=== PATIENT | female | born 1975 | race Caucasian/White ===

== ENCOUNTER 2020-04-16 18:53 | Emergency (ER) | payer BC ==
--- NOTE | 2020-04-16 19:20 | ED Physician Documentation ---
PD HPI ABD PAIN - Stated complaint Stated Complaint: ABD PX - Chief complaint Chief Complaint: Abd Pain - History obtained from History obtained from: Patient - History of Present Illness Timing - onset: How many weeks ago (1) Timing - duration: Weeks (1) Timing - details: Abrupt onset Pain level max: 10 Pain level now: 10 Quality: Aching, Pain Location: RUQ Radiation: Right flank Improved by: Other (nothing) Worsened by: Other (nothing) Associated symptoms: Nausea. No: Fever, Hematemesis, Diarrhea, Constipation, Melena, Hematochezia, Dysuria, Hematuria Similar symptoms before: Has not had sx before Recently seen: Clinic (sent from walk in clinic for possible appendicitis.) Review of Systems Ten Systems: 10 systems reviewed and negative Constitutional: denies: Fever, Chills GI: denies: Nausea, Vomiting : denies: Dysuria Skin: denies: Rash PD PAST MEDICAL HISTORY - Past Medical History Past Medical History: No - Past Surgical History Past Surgical History: No - Present Medications Home Medications: Ambulatory Orders Medication Instructions Recorded Confirmed Propranolol [Inderal] 0 mg DAILY 04/16/20 04/16/20 Sertraline [Zoloft] 0 mg DAILY 04/16/20 04/16/20 - Allergies Allergies/Adverse Reactions: Allergies Allergy/AdvReac Type Severity Reaction Status Date / Time Sulfa (Sulfonamide Allergy Unknown Verified 04/16/20 19:05 Antibiotics) - Living Situation Living Situation: reports: With family Living Arrangement: reports: At home - Social History Does the pt smoke?: No Does the pt drink ETOH?: No Does the pt have substance abuse?: No PD ED PE NORMAL - Vitals Vital signs reviewed: Yes - General General: Alert and oriented X 3, No acute distress, Other (obese female) - HEENT HEENT: Moist mucous membranes - Neck Neck: Supple, no meningeal sign - Cardiac Cardiac: RRR - Respiratory Respiratory: No respiratory distress, Clear bilaterally - Abdomen Abdomen: Soft, Non distended, Other (To palpation right upper quadrant. Positive Harvey sign) - Back Back: No CVA TTP - Derm Derm: Warm and dry - Extremities Extremities: No calf tenderness / cord - Neuro Neuro: Alert and oriented X 3 - Psych Psych: Normal mood Results - Vitals Vitals: Vital Signs - 24 hr 04/16/20 04/16/20 04/16/20 19:00 19:04 20:20 Temperature 36.6 C Heart Rate 69 72 65 Respiratory 16 16 16 Rate Blood Pressure 168/88 H 142/72 H 141/68 H O2 Saturation 98 99 100 04/16/20 04/16/20 21:45 22:33 Temperature Heart Rate 66 62 Respiratory 18 16 Rate Blood Pressure 138/68 H 139/66 H O2 Saturation 100 100 Oxygen O2 Source Room air - Labs Labs: Laboratory Tests 04/16/20 04/16/20 04/16/20 19:30 19:30 21:42 WBC 13.2 H RBC 3.98 L Hgb 11.3 L Hct 35.8 L MCV 89.9 MCH 28.4 MCHC 31.6 L RDW 15.0 Plt Count 298 MPV 9.4 Neut # (Auto) 10.9 H Lymph # (Auto) 1.2 L [place] # (Auto) 0.8 Eos # (Auto) 0.2 Baso # (Auto) 0.1 Absolute Nucleated RBC 0.00 Nucleated RBC % 0.0 Sodium 135 Potassium 3.9 Chloride 102 Carbon Dioxide 24 Anion Gap 9.0 BUN 8 Creatinine 0.9 Estimated GFR (MDRD) 67 L Glucose 108 H Calcium 9.0 Total Bilirubin 0.6 AST 20 ALT 22 Alkaline Phosphatase 65 Total Protein 7.1 Albumin 3.6 Globulin 3.5 Albumin/Globulin Ratio 1.0 Lipase 30 Urine Color YELLOW Urine Clarity CLEAR Urine pH 7.0 Ur Specific [place] 1.010 Urine Protein NEGATIVE Urine Glucose (UA) NEGATIVE Urine Ketones NEGATIVE Urine Occult Blood NEGATIVE Urine Nitrite NEGATIVE Urine Bilirubin NEGATIVE Urine Urobilinogen 0.2 (NORMAL) Ur Leukocyte Esterase NEGATIVE Ur Microscopic Review NOT INDICATED Urine Culture Comments NOT INDICATED - Rads (name of study) Right upper quadrant ultrasound Radiology: Prelim report reviewed, EMP read contemporaneously, See rad report (1. No evidence of cholelithiasis or cholecystitis. 2. Increased hepatic echogenicity compatible with steatosis. ) CT abd/pelvis Radiology: Prelim report reviewed, EMP read contemporaneously, See rad report PD MEDICAL DECISION MAKING - ED course Complexity details: reviewed results, re-evaluated patient, considered differential, d/w patient ED course: 45-year-old female with abdominal pain of unclear etiology. No acute findings on CT scan or ultrasound. There is mild asymmetric enlargement of the left ovary, therefore pelvic ultrasound was ordered. Does have a mild leukocytosis, but no fever. Denies any changes in sexual partners. No vaginal bleeding or discharge. Possible ruptured cyst? We will order a pelvic ultrasound and the patient will be signed out to Dr. Mari awaiting that result. Please see his note for final disposition. 1. Mild asymmetric enlargement of the left ovary with fat stranding and fluid in the left adnexa. The findings are nonspecific and the differential includes pelvic inflammatory disease, left ovarian torsion, or sequelae of a ruptured cyst. Recommend correlation clinically and further evaluation with a pelvic ultrasound if clinically indicated. 2. No abscess collections. 3. Colonic diverticulosis without acute diverticulitis. Departure - Departure Clinical Impression: Abdominal pain Qualifiers: Abdominal location: generalized Qualified Code(s): R10.84 - Generalized abdominal pain Condition: Stable
[2020-04-16 19:44] LABS: BASOPHILS # (AUTO) 0.1 10^3/uL (0.0-0.1); BASOPHILS % (AUTO) 0.4 %; EOSINOPHILS # (AUTO) 0.2 10^3/uL (0.0-0.7); EOSINOPHILS % (AUTO) 1.2 %; HGB - HEMOGLOBIN 11.3 g/dL (12.0-16.0); LYMPHOCYTES # (AUTO) 1.2 10^3/uL (1.5-3.5); LYMPHOCYTES % (AUTO) 8.9 %; MEAN CORPUSCULAR HEMOGLOBIN 28.4 pg (27.0-31.0); MEAN CORPUSCULAR HGB CONC 31.6 g/dL (32.0-36.0); MEAN CORPUSCULAR VOLUME 89.9 fL (81.0-99.0); MEAN PLATELET VOLUME 9.4 fL (7.9-10.8); MONOCYTES # (AUTO) 0.8 10^3/uL (0.0-1.0); MONOCYTES % (AUTO) 6.2 %; NEUTROPHILS # (AUTO) 10.9 10^3/uL (1.5-6.6); NEUTROPHILS % (AUTO) 82.7 %; PLT - PLATELET COUNT 298 10^3/uL (130-450); RED BLOOD COUNT 3.98 10^6/uL (4.20-5.40); WHITE BLOOD COUNT 13.2 x10^3/uL (4.8-10.8)
[2020-04-16 19:55] LABS: ALBUMIN 3.6 g/dL (3.2-5.5); BILIRUBIN,TOTAL 0.6 mg/dL (0.2-1.0); CREATININE 0.9 mg/dL (0.4-1.0); TOTAL PROTEIN 7.1 g/dL (6.7-8.2)
[2020-04-16] MEDS ORDERED: IOVERSOL 320 100 ML VIAL IVP ONE ×2 (20:53→21:41)
--- NOTE | 2020-04-16 20:56 | Ultrasound Report ---
PROCEDURE: Abdomen Limited INDICATIONS: RUQ abd pain TECHNIQUE: Real-time focused scanning was performed of the right upper quadrant, with image documentation. COMPARISON: None. FINDINGS: Evaluation limited by body habitus and bowel gas. The liver appears enlarged and demonstrates heterogeneously increased echogenicity compatible with fa tty infiltration. No gallstones, definite gallbladder wall thickening, or pericholecystic fluid. The gallbladder is inc ompletely distended slightly limiting evaluation. No definite intra or extra hepatic biliary ductal dilatation. The visualized common bile duct measure s up to 5 mm. The pancreas was not well visualized. Right kidney measures up to 11.1 cm. No hydronephrosis. IMPRESSION: 1. No evidence of cholelithiasis or cholecystitis. 2. Increased hepatic echogenicity compatible with steatosis. Reviewed by: Mike Page MD on 04/16/2020 8:55 PM PDT Approved by: Mike Page MD on 04/16/2020 8:55 PM PDT Station ID: [id number]
[2020-04-16] MEDS ORDERED: SODIUM CHLORIDE 0.9% 1,000 ML IV STA (21:19)
--- NOTE | 2020-04-16 21:45 | CT Report ---
PROCEDURE: Abdomen/Pelvis W INDICATIONS: R sided abd pain CONTRAST: IV CONTRAST: Optiray 320 ml: 100 PO CONTRAST: *NO PO CONTRAST TECHNIQUE: After the administration of intravenous contrast, 5 mm thick sections acquired from the diaphragms to the symphysis. 5 mm thick coronal and sagittal reformats were acquired. For radiation dose reducti on, the following was used: automated exposure control, adjustment of mA and/or kV according to jessy ent size. COMPARISON: Ultrasound abdomen 04/16/2020. FINDINGS: Image quality: There is beam hardening artifact slightly limiting evaluation. ABDOMEN: Lung bases: There is mild dependent atelectasis. Heart size is normal. Solid organs: Evaluation of the liver demonstrates no focal hepatic lesions. Gallbladder appears with in normal limits without calcified gallstones. Spleen is normal in size. Biliary system is non dilate d. Pancreas enhances normally. No adrenal nodules. Kidneys demonstrate normal size and enhancement , without hydronephrosis. Peritoneum and bowel: Bowel loops demonstrate normal wall thickness and caliber. The appendix is nor mal in appearance. There is colonic diverticulosis without acute diverticulitis. No free fluid or air . Nodes and vessels: No retroperitoneal or mesenteric adenopathy by size criteria. Aorta and inferior vena cava are normal in size. Miscellaneous: No ventral hernias. PELVIS: Genitourinary: Bladder wall thickness is normal. There is mild asymmetric enlargement of the left o vary measuring up to approximately 5.1 x 3.3 x 3.2 cm. There is associated mild fat stranding and min imal fluid in the left adnexa. No free fluid in the pelvic cul-de-sac. The uterus and endometrium are mildly prominent in size but within normal limits for a premenopausal female. Miscellaneous: No inguinal hernias or adenopathy. Bones: No suspicious bony lesions. No vertebral body compression fractures. IMPRESSION: 1. Mild asymmetric enlargement of the left ovary with fat stranding and fluid in the left adnexa. The findings are nonspecific and the differential includes pelvic inflammatory disease, left ovarian tor viviane, or sequelae of a ruptured cyst. Recommend correlation clinically and further evaluation with a pelvic ultrasound if clinically indicated. 2. No abscess collections. 3. Colonic diverticulosis without acute diverticulitis. Reviewed by: Mike Page MD on 04/16/2020 9:44 PM PDT Approved by: Mike Page MD on 04/16/2020 9:44 PM PDT Station ID: [id number]
[2020-04-16 21:53] LABS: BILIRUBIN,URINE NEGATIVE (NEGATIVE); GLUCOSE, URINE (UA) NEGATIVE (NEGATIVE); KETONES,URINE (UA) NEGATIVE (NEGATIVE); LEUKOCYTE ESTERASE, URINE NEGATIVE (NEGATIVE); NITRITE,URINE NEGATIVE (NEGATIVE); OCCULT BLOOD,URINE NEGATIVE (NEGATIVE); PROTEIN,URINE NEGATIVE (NEGATIVE); UROBILINOGEN,URINE 0.2 (NORMAL) E.U./dL (NORMAL)
[2020-04-16 21:54] LABS: CLARITY,URINE CLEAR (CLEAR)
[2020-04-16] MEDS ORDERED: KETOROLAC 30 MG/ML VIAL IVP STA (21:58)
[2020-04-16] MEDS ORDERED: LIDOCAINE VISCOUS 2% 15 ML UDC MM STA (23:14)
[2020-04-16] MEDS ORDERED: MAG HYDROX/AL HYDROX/SIMETH 30 ML UDC PO STA (23:15)
--- NOTE | 2020-04-16 23:17 | ED Physician Documentation ---
PD HPI ABD PAIN - Stated complaint Stated Complaint: ABD PX - Chief complaint Chief Complaint: Abd Pain - History obtained from History obtained from: Patient - History of Present Illness Timing - onset: How many weeks ago (1) Timing - duration: Weeks (1) Timing - details: Gradual onset, Still present Quality: Sharp, Pain Location: RUQ Radiation: Right flank Improved by: Laying still Worsened by: Moving, Breathing, Position, Palpation. No: Eating Associated symptoms: No: Nausea, Vomiting, Diarrhea, Constipation Similar symptoms before: Has not had sx before Recently seen: Clinic - Additional information Additional information: 45-year-old female describes developing abdominal pain in the right upper lisa drant 1 week ago she had persistence of this pain [place] She saw Dr. Chavez and he recommended she come to the hospital for CAT scan for concern about her appendix. The patient states that she has been able to eat throughout the past week she denies any nausea vomiting diarrhea constipation or difficulty with urination. She felt she might have a kidney infection and that was her concern. She states that she did have her menses and a lot of cramping associated with that and she took some ibuprofen. She states that it hurts to roll over in bed it hurts to stand up straight and it hurts to sit up in bed. Review of Systems Constitutional: reports: Fever (low grade (99)) Eyes: denies: Decreased vision Ears: denies: Ear pain Nose: denies: Congestion Throat: denies: Sore throat Cardiac: denies: Chest pain / pressure, Palpitations Respiratory: denies: Dyspnea, Cough GI: reports: Abdominal Pain. denies: Abdominal Swelling, Nausea, Vomiting, Constipation, Diarrhea : denies: Dysuria, Frequency Skin: denies: Rash Musculoskeletal: denies: Neck pain, Back pain Neurologic: denies: Generalized weakness, Focal weakness, Numbness PD PAST MEDICAL HISTORY - Past Medical History Past Medical History: No Cardiovascular: Hypertension Respiratory: Asthma Neuro: None Endocrine/Autoimmune: None GI: None MANAGER ROOFING: None : None Psych: None Musculoskeletal: None Derm: None - Past Surgical History Past Surgical History: No /MANAGER ROOFING: section - Present Medications Home Medications: Ambulatory Orders Medication Instructions Recorded Confirmed Propranolol [Inderal] 0 mg DAILY 09/04/20 09/04/20 Sertraline [Zoloft] 0 mg DAILY 04/16/20 04/16/20 Hydrocodone/Acetaminophen 1 - 2 each PO Q6H PRN #14 tablet 04/17/20 [Hydrocodone-Acetamin 5-325 mg] - Allergies Allergies/Adverse Reactions: Allergies Allergy/AdvReac Type Severity Reaction Status Date / Time Sulfa (Sulfonamide Allergy Unknown Verified 04/16/20 19:05 Antibiotics) - Social History Does the pt smoke?: No Smoking Status: Never smoker Does the pt drink ETOH?: No Does the pt have substance abuse?: No - Immunizations Immunizations are current?: Yes PD ED PE NORMAL - Vitals Vital signs reviewed: Yes (hypertensive) - General General: Alert and oriented X 3, No acute distress, Well developed/nourished - HEENT HEENT: Atraumatic, PERRL, EOMI - Respiratory Respiratory: No respiratory distress - Abdomen Abdomen: Soft, Other (RUQ tenderness to palpation extinquishes with continued pressure. Present with palpation each time. RLQ and L upper and lower without tenderness. ) - Back Back: No CVA TTP, No spinal TTP - Derm Derm: Normal color, Warm and dry, No rash - Extremities Extremities: No deformity, No edema - Neuro Neuro: Alert and oriented X 3, liner inserter 2-12 intact, No motor deficit, No sensory deficit, Normal speech Eye Opening: Spontaneous Motor: Obeys Commands Verbal: Oriented GCS Score: 15 - Psych Psych: Normal mood, Normal affect Results - Vitals Vitals: Vital Signs - 24 hr 04/16/20 04/16/20 04/16/20 19:00 19:04 20:20 Temperature 36.6 C Heart Rate 69 72 65 Respiratory 16 16 16 Rate Blood Pressure 168/88 H 142/72 H 141/68 H O2 Saturation 98 99 100 04/16/20 04/16/20 04/17/20 21:45 22:33 01:00 Temperature Heart Rate 66 62 73 Respiratory 18 16 14 Rate Blood Pressure 138/68 H 139/66 H 128/80 O2 Saturation 100 100 97 Oxygen O2 Source Room air - Labs Labs: Laboratory Tests 04/16/20 04/16/20 04/16/20 19:30 19:30 21:42 WBC 13.2 H RBC 3.98 L Hgb 11.3 L Hct 35.8 L MCV 89.9 MCH 28.4 MCHC 31.6 L RDW 15.0 Plt Count 298 MPV 9.4 Neut # (Auto) 10.9 H Lymph # (Auto) 1.2 L [place] # (Auto) 0.8 Eos # (Auto) 0.2 Baso # (Auto) 0.1 Absolute Nucleated RBC 0.00 Nucleated RBC % 0.0 Sodium 135 Potassium 3.9 Chloride 102 Carbon Dioxide 24 Anion Gap 9.0 BUN 8 Creatinine 0.9 Estimated GFR (MDRD) 67 L Glucose 108 H Calcium 9.0 Total Bilirubin 0.6 AST 20 ALT 22 Alkaline Phosphatase 65 Total Protein 7.1 Albumin 3.6 Globulin 3.5 Albumin/Globulin Ratio 1.0 Lipase 30 Urine Color YELLOW Urine Clarity CLEAR Urine pH 7.0 Ur Specific [place] 1.010 Urine Protein NEGATIVE Urine Glucose (UA) NEGATIVE Urine Ketones NEGATIVE Urine Occult Blood NEGATIVE Urine Nitrite NEGATIVE Urine Bilirubin NEGATIVE Urine Urobilinogen 0.2 (NORMAL) Ur Leukocyte Esterase NEGATIVE Ur Microscopic Review NOT INDICATED Urine Culture Comments NOT INDICATED - Rads (name of study) abd u/s Radiology: Prelim report reviewed (Impression: 1. No evidence of cholelithiasis or cholecystitis. 2. Increased hepatic echogenicity compatible with steatosis.), EMP read indepedently, See rad report CT ab/pel Radiology: Prelim report reviewed (Impression: 1. Mild asymmetric enlargement of the left ovary with fat stranding and fluid in the left adnexa. The findings are nonspecific and differential includes pelvic inflammatory disease, left ovarian torsion, or sequelae of ruptured cyst. Recommend correlation clinically and further evalua), EMP read indepedently, See rad report pelvic u/s Radiology: Prelim report reviewed (Impression: 1. No evidence of ovarian torsion. 2. 2.1 cm indeterminate lesion in the left ovary. Consensus recommendations suggest the following: Initially a short interval (6 to 12 weeks) follow-up pelvic ultrasound.If lesion persist, surgical evaluation recommended. Enlarged heterogeneous uteru), EMP read indepedently, See rad report PD MEDICAL DECISION MAKING - ED course Complexity details: reviewed old records, reviewed results, re-evaluated patient, considered differential, d/w patient ED course: 45-year-old female with abdominal pain for the past week felt that initially her symptoms were related to her pelvis and possibly urinary tract infection. She felt that she had excessive menstrual cramping. Her pain has shifted to the right upper quadrant and she has tenderness as well as pain on movement. I considered abdominal wall muscle strain to be high on the differential for her right upper quadrant pain. She does have an abnormality to her pelvis which will require follow-up but I am not able to correlate this finding with the pain in the right upper quadrant. I did have the patient sit up in bed which exacerbated her pain and move from side to side which exacerbated her pain. I was able to palpate the abdomen which exacerbated the pain but with persistent pressure the pain resolved. There are no findings on CT or ultra sound to account for the pain. The patient is able to eat and digest without change to any aspect of the pain. We will provide a short course of pain medication and have the patient follow up with MANAGER ROOFING. I encouraged the patient to follow up with MANAGER [facility]OOF[facility] even if her pain resolves completely as this finding is considered incidental and may represent ovarian malignancy. Departure - Departure Disposition: 01 Home, Self Care Clinical Impression: Ovarian mass, left Abdominal pain Qualifiers: Abdominal location: generalized Qualified Code(s): R10.84 - Generalized abdominal pain Condition: Stable Instructions: Cysts Ovarian, ED Strain Abdominal Muscle Follow-Up: Cyndi Villanueva ARNP [Primary Care Provider] - [facility] [Provider Group] Prescriptions: Hydrocodone/Acetaminophen [Hydrocodone-Acetamin 5-325 mg] 1 - 2 each PO Q6H PRN #14 tablet PRN Reason: Pain Discharge Date/Time: 04/17/20 01:13
[2020-04-17 01:14] VITALS: BP 128/80
--- NOTE | 2020-04-17 09:21 | Ultrasound Report ---
PROCEDURE: Pelvic w/Transvag+Doppler Comp INDICATIONS: abnormal L ovary on CT TECHNIQUE: Real-time scanning was performed of the pelvic organs, with image documentation. Additional endovagi nal scanning was necessary due to incomplete visualization of the adnexal and endometrial structures by transabdominal scanning. COMPARISON: Correlation is made with abdominal ultrasound 04/16/[address] 0 FINDINGS: Transabdominal scanning: No pathologic free abdominal or pelvic fluid. Endovaginal scanning: Uterus: Uterus is normal in size at 13.9 x 7.5 x 8.9 cm. The endometrium measures 13 mm in combined thickness. Ovaries: The right ovary measures 3.1 x 1.5 x 1.8 cm, and is overall not well seen. The left ovary m easures 3.7 x 2.5 x 2.4 cm. Within the left ovary, there is a hypoechoic focus seen that measures up to 2 cm. Normal-appearing arterial flow is confirmed to each ovary. Normal-appearing venous flow is a lso seen. No adnexal masses are seen on either side. IMPRESSION: Negative for ovarian torsion. 2 cm hypoechoic focus seen within the left ovary, which may be related to a hemorrhagic cyst. Please consider a short-term follow-up ultrasound in 6 weeks to ensure resolution/improvement. Note: No significant discrepancy from the preliminary report. Reviewed by: Demar Sanderson MD on 04/17/2020 8:19 AM DIMAS Approved by: Demar Sanderson MD on 04/17/2020 8:19 AM DIMAS Station ID: [id number]
== END 2020-04-17 01:13 | disposition home or self-care (01) ==
LOC: ED 18:53
DX: N83.9 Noninflammatory disorder of ovary, fallopian tube and broad ligament, unspecified (principal); R10.84 Generalized abdominal pain
CPT/HCPCS: 36415; 74177; 76705; 76830; 76856; 80053; 81003; 83690; 85025; 93975; 96361; 96374; 99284; A9270; Q9967; 81001; 87086

== ENCOUNTER 2020-07-16 11:21 | Outpatient (CLI) | payer BC ==
[2020-07-16 15:37] LABS: HCG UR QUAL NEGATIVE
[2020-07-16 15:38] LABS: BASOPHILS # (AUTO) 0.1 10^3/uL (0.0-0.1); BASOPHILS % (AUTO) 0.7 %; EOSINOPHILS # (AUTO) 0.5 10^3/uL (0.0-0.7); HGB - HEMOGLOBIN 11.3 g/dL (12.0-16.0); LYMPHOCYTES # (AUTO) 1.2 10^3/uL (1.5-3.5); LYMPHOCYTES % (AUTO) 15.2 %; MEAN CORPUSCULAR HEMOGLOBIN 26.8 pg (27.0-31.0); MEAN CORPUSCULAR HGB CONC 30.7 g/dL (32.0-36.0); MEAN CORPUSCULAR VOLUME 87.4 fL (81.0-99.0); MONOCYTES # (AUTO) 0.5 10^3/uL (0.0-1.0); MONOCYTES % (AUTO) 6.7 %; NEUTROPHILS # (AUTO) 5.4 10^3/uL (1.5-6.6); PLT - PLATELET COUNT 293 10^3/uL (130-450); RED BLOOD COUNT 4.21 10^6/uL (4.20-5.40); RED CELL DISTRIBUTION WIDTH 15.5 % (12.0-15.0); WHITE BLOOD COUNT 7.6 x10^3/uL (4.8-10.8)
== END 2020-07-16 11:22 | disposition home or self-care (01) ==
LOC: LAB.S 11:21
PROVIDERS: ATTEND Obstetrics & Gynecology
DX: Z01.812 Encounter for preprocedural laboratory examination (principal); N92.1 Excessive and frequent menstruation with irregular cycle; Z20.828 Contact with and (suspected) exposure to other viral communicable diseases; R73.03 Prediabetes
CPT/HCPCS: 36415; 81025; 85025

== ENCOUNTER 2020-07-16 15:59 | Outpatient (CLI) | payer BC | END 2020-07-16 16:00 | disposition home or self-care (01) | LOC: COV 15:59 | PROVIDERS: ATTEND Obstetrics & Gynecology | DX: Z01.812 Encounter for preprocedural laboratory examination (principal); N92.1 Excessive and frequent menstruation with irregular cycle; Z20.828 Contact with and (suspected) exposure to other viral communicable diseases ==

== ENCOUNTER 2020-07-22 06:32 | Day surgery (SDC) | payer BC ==
[~2020-07-22 06:32] MED LIST: ACETAMINOPHEN 1,000 MG/100 ML 100 ML IV ONE; CELECOXIB 100 MG CAPSULE PO ONE; GABAPENTIN 400 MG CAPSULE ONE
[2020-07-22 06:52] LABS: HCG UR QUAL NEGATIVE
[2020-07-22] MEDS ORDERED: LACTATED RINGERS 1,000 ML IV ONE (07:02)
--- NOTE | 2020-07-22 07:32 | ANESTHESIA ---
Pre-Anesthesia VS, & Labs - Diagnosis menometorrahagia - Procedure hysteroscopy, Dand c, polypectomy Vital Signs: Temp Pulse Resp BP Pulse Ox 36.2 C L 65 16 145/85 H 97 07/22/20 07:10 07/22/20 07:10 07/22/20 07:10 07/22/20 07:10 07/22/20 07:10 Height: 5 ft 3 in Weight (kg): 136.5 kg Body Mass Index: 53.3 BMI Classification: Morbidly Obese - NPO >8 hours - Is Patient ?: No - Lab Results Current Lab Results: Laboratory Tests 07/22/20 06:57: POC Whole Bld Glucose 105 H Home Medications and Allergies Home Medications: Ambulatory Orders Albuterol Sulfate [Proair Hfa Inhaler] 1 - 2 puffs INH Q4H PRN 07/14/20 Alprazolam [Xanax] 0.25 mg PO PRN PRN 07/14/20 Omeprazole 20 mg PO DAILY 07/14/20 Propranolol [Inderal] 80 mg PO DAILY 04/16/20 Sertraline [Zoloft] 100 mg PO DAILY 04/16/20 Albuterol Sulfate [Proair Hfa Inhaler] 1 - 2 puffs INH Q4H PRN 07/14/20 Alprazolam [Xanax] 0.25 mg PO PRN PRN 07/14/20 Omeprazole 20 mg PO DAILY 07/14/20 Allergies/Adverse Reactions: Allergies Allergy/AdvReac Type Severity Reaction Status Date / Time Sulfa (Sulfonamide Allergy Hives Verified 07/14/20 10:07 Antibiotics) Anes History & Medical History - Anesthetic History Anesthesia Complications: reports: No previous complications - Medical History Cardiovascular: reports: Hypertension Pulmonary: reports: Asthma Gastrointestinal: reports: GERD, Ulcers, Hiatal hernia Urinary: reports: None Neuro: reports: None Musculoskeletal: reports: None Endocrine/Autoimmune: reports: None Blood Disorders: reports: None Skin: reports: None Smoking Status: Never smoker - Surgical History Gynecologic: section Orthopedic: Other Exam General: Alert Dental: WNL Mouth Opening: Greater than 4 Fingerbreadths Neck Mobility: Normal Respiratory: Lungs clear Cardiovascular: Regular rate Plan Anesthesia Type: General Consent for Procedure(s) Verified and Reviewed: Yes Code Status: Attempt Resuscitation ASA classification: 3-Severe systemic disease Is this case an emergency?: No
[2020-07-22] MEDS ORDERED: fentaNYL 100 MCG/2 ML VIAL IVP PRN (07:39)
[2020-07-22] MEDS ORDERED: ONDANSETRON 4 MG/2 ML VIAL IVP PRN (07:39)
[2020-07-22] MEDS ORDERED: ATROPINE ABBOJECT 1 MG/10 ML SYRINGE IVP PRN (07:39)
[2020-07-22] MEDS ORDERED: NALOXONE 0.4 MG/ML VIAL IVP PRN (07:39)
[2020-07-22] MEDS ORDERED: HYDROmorphone 0.5 MG/0.5 ML SYRINGE IVP PRN (07:39)
[2020-07-22] MEDS ORDERED: MORPHINE 2 MG/ML CARPUJECT IVP PRN (07:39)
[2020-07-22] MEDS ORDERED: METOCLOPRAMIDE 10 MG/2 ML VIAL IVP PRN (07:39)
[2020-07-22] MEDS ORDERED: ePHEDrine 50 MG/ML VIAL IVP PRN (07:39)
[2020-07-22] MEDS ORDERED: BUPIVACAINE 0.5% PF 30 ML VIAL ONE (07:43)
[2020-07-22] MEDS ORDERED: LACTATED RINGERS 1,000 ML IV SCH (08:00)
[2020-07-22] MEDS ORDERED: BUPIVACAINE 0.5% PF 30 ML VIAL INFIL ONE ×2 (08:16)
[2020-07-22] MEDS ORDERED: LACTATED RINGERS 550 ML IV ONE (08:46)
[2020-07-22] MEDS ORDERED: SCOPOLAMINE PATCH TOP ONE (08:55)
[2020-07-22] MEDS ORDERED: SCOPOLAMINE PATCH TOP SCH (09:00)
--- NOTE | 2020-07-22 09:09 | OPERATIVE REPORT ---
Operative Report - General Procedure Date: 07/22/20 Planned Procedure: Hysteroscopy D&C Pre-Op Diagnosis: Dysfunctional uterine bleeding, failed EMB in clinic Procedure Performed: Hysteroscopy D&C Post Op Diagnosis: Dysfunctional uterine bleeding, BMI >50 - Procedure Note Primary Surgeon: Millie Camara MD Anesthesia Provider: Cathleen Mars CRNA Anesthesia Technique: General ET tube Pathology: Uterine contents IV Fluids (mL): 550 Estimated Blood Loss (mL): 5 Indications: Patient is a 45 yo female with dysfunctional uterine bleeding. BMI is 53 and she is high risk for hyperplasia. EMB collected in clinic was insufficient for assessment. Patient desires hysterectomy and needs preoperative sampling. She presented for hysteroscopy D&C. Findings: Uterus sounded to 9 cm but cervix was exceedingly elongated. Uterine cavity was unremarkable with bilateral tubal ostia noted. Complications: None - Other Other Information/Narrative: Risks benefits and alternatives to the procedure were reviewed. Consent was again confirmed. Patient was taken to the operating room where she underwent general anesthesia. She was positioned in dorsolithotomy position with legs resting in yellowfin stirrups. She was prepped and draped in the usual sterile fashion. Preoperative antibiotics were not indicated. Preoperative checklist w as performed. Exam under anesthesia was performed. Speculum was placed in the vagina and the cervix was visualized. Single-tooth tenaculum was placed at the anterior cervical lip. Paracervical block was administered using a total of 20 cc of 0.5% lidocaine with epinephrine was injected at the 4:00 and 8:00 positions lateral to the portio of the cervix. The cervical os was serially dilated with Hegar dilators to accommodate the caliber of the diagnostic hysteroscope. Uterus sounded to 9 cm. The hysteroscope was inserted and findings were noted as above. The hysteroscopic morcellator was inserted through the operative port. D&C was performed under direct visualization with the hysteroscopic morcellator as effective curettage with the sharp curette would have been untenable due to the combined length of the vaginal vault and the elongated cervical canal. Uterine cavity was smooth at close of the procedure. Hysteroscope was removed. All instruments were removed from the uterus. Tenaculum was removed. Tenaculum sites were noted to be hemostatic. All instruments were removed from the vagina. Procedure was well-tolerated without complication. Fluid deficit: 1000 cc NS (of note, the bedding was saturated with fluid and there was significant spillage on the floor.)
[2020-07-22] MEDS ORDERED: oxyCODONE 5 MG TABLET PO PRN (09:24)
[2020-07-22] MEDS ORDERED: oxyCODONE 5 MG TABLET ONE (09:43)
[2020-07-22 09:44] VITALS: BP 142/82
--- NOTE | 2020-07-22 12:01 | ANESTHESIA POST OP EVALUATION ---
Anesthesia Post Eval - Post Anesthesia Eval Vitals: Last Vital Signs Temp 36.2 C L 07/22/20 09:17 Pulse 56 L 07/22/20 09:17 Resp 18 07/22/20 09:17 BP 142/82 H 07/22/20 09:17 Pulse Ox 93 07/22/20 09:17 CV Function Including HR & BP: positive: Stable Pain Control: positive: Satisfactory Nausea & Vomiting: positive: Negative Mental Status: positive: Baseline Respiratory Status: Airway Patent Hydration Status: Satisfactory Anesthesia Complications: positive: None
== END 2020-07-22 06:33 | disposition home or self-care (01) ==
LOC: SDS 06:32
PROVIDERS: ATTEND Obstetrics & Gynecology
PROC: 0UDB8ZX Extraction of Endometrium, Via Natural or Artificial Opening Endoscopic, Diagnostic (ICD-10-PCS; principal; 2020-07-22 07:30)
DX: N92.1 Excessive and frequent menstruation with irregular cycle (principal); R10.2 Pelvic and perineal pain; I10 Essential (primary) hypertension; J45.909 Unspecified asthma, uncomplicated; E66.01 Morbid (severe) obesity due to excess calories; R73.03 Prediabetes; Z68.43 Body mass index [BMI] 50.0-59.9, adult; E78.5 Hyperlipidemia, unspecified; K21.9 Gastro-esophageal reflux disease without esophagitis; K44.9 Diaphragmatic hernia without obstruction or gangrene; F40.01 Agoraphobia with panic disorder; F17.200 Nicotine dependence, unspecified, uncomplicated; Z87.11 Personal history of peptic ulcer disease; Z79.51 Long term (current) use of inhaled steroids; Z79.899 Other long term (current) drug therapy
CPT/HCPCS: 58558; 81025; A9270; J0131; J3490; J7120

== ENCOUNTER 2021-09-04 08:00 | Outpatient (CLI) | payer BC | END 2021-09-04 23:59 | disposition home or self-care (01) | LOC: LAB.S 08:00 | PROVIDERS: ATTEND Physician Assistant Medical | DX: R05.9 Cough, unspecified (principal); Z20.822 Contact with and (suspected) exposure to COVID-19 ==

== ENCOUNTER 2022-03-02 08:26 | Outpatient (CLI) | payer BC ==
[2022-03-02 14:31] LABS: BASOPHILS % (AUTO) 0.5 %; EOSINOPHILS # (AUTO) 0.2 10^3/uL (0.0-0.7); HCT - HEMATOCRIT 36.9 % (37.0-47.0); HGB - HEMOGLOBIN 11.2 g/dL (12.0-16.0); LYMPHOCYTES # (AUTO) 1.4 10^3/uL (1.5-3.5); LYMPHOCYTES % (AUTO) 17.9 %; MEAN CORPUSCULAR HEMOGLOBIN 24.8 pg (27.0-31.0); MEAN CORPUSCULAR HGB CONC 30.4 g/dL (32.0-36.0); MEAN CORPUSCULAR VOLUME 81.6 fL (81.0-99.0); MEAN PLATELET VOLUME 10.7 fL (7.9-10.8); MONOCYTES # (AUTO) 0.5 10^3/uL (0.0-1.0); MONOCYTES % (AUTO) 6.5 %; NEUTROPHILS # (AUTO) 5.7 10^3/uL (1.5-6.6); NEUTROPHILS % (AUTO) 72.8 %; PLT - PLATELET COUNT 346 10^3/uL (130-450); RED BLOOD COUNT 4.52 10^6/uL (4.20-5.40); RED CELL DISTRIBUTION WIDTH 17.1 % (12.0-15.0); WHITE BLOOD COUNT 7.9 x10^3/uL (4.8-10.8)
[2022-03-02 14:57] LABS: THYROID STIMULATING HORMONE 1.33 uIU/mL (0.34-5.60)
[2022-03-02 15:21] LABS: % IRON SATURATION 8 % (20-50); ALBUMIN 3.7 g/dL (3.2-5.5); ALKALINE PHOSPHATASE 46 IU/L (42-121); ALT ALANINE AMINOTRANSFERASE 20 IU/L (10-60); AST ASPARTATE AMINOTRANSFERASE 17 IU/L (10-42); BILIRUBIN,TOTAL 0.6 mg/dL (0.2-1.0); BUN - BLOOD UREA NITROGEN 9 mg/dL (6-20); CALCIUM 9.2 mg/dL (8.5-10.3); CARBON DIOXIDE - CO2 26 mmol/L (21-32); CHLORIDE 104 mmol/L (101-111); CREATININE 0.8 mg/dL (0.4-1.0); GFR - MDRD 77 (>89); GLUCOSE 96 mg/dL (70-100); IRON 33 ug/dL (28-170); MAGNESIUM 1.8 mg/dL (1.7-2.8); POTASSIUM 4.2 mmol/L (3.5-5.0); SODIUM 137 mmol/L (135-145); TOTAL IRON BINDING CAPACITY 437 ug/dL (250-450); TRANSFERRIN 312 mg/dL (192-382)
[2022-03-02 15:22] LABS: ALBUMIN/GLOBULIN RATIO 1.1 (1.0-2.2); CHOL/HDL RATIO 4.1 (<4.4); CHOLESTEROL 231 mg/dL; HDL CHOLESTEROL 56 mg/dL; LDL CHOLESTEROL,CALCULATED 150 mg/dL; LDL/HDL RATIO 2.7 (<4.4); TRIGLYCERIDES 125 mg/dL; VLDL CHOLESTEROL 25 mg/dL
[2022-03-02 20:35] LABS: ESTIMATED AVERAGE GLUCOSE 108 mg/dL (70-100); HEMOGLOBIN A1c% 5.4 % (4.27-6.07)
[2022-03-03 20:08] LABS: FOLATE HEMOLYSATE 466.9 ng/mL (Not Estab.); FOLATE RBC 1326 ng/mL (>498); HEMATOCRIT 35.2 % (34.0-46.6)
== END 2022-03-02 08:27 | disposition home or self-care (01) ==
LOC: LAB.S 08:26
PROVIDERS: ATTEND Surgery
DX: E66.01 Morbid (severe) obesity due to excess calories (principal); Z68.43 Body mass index [BMI] 50.0-59.9, adult
CPT/HCPCS: 36415; 80053; 80061; 82306; 82330; 82607; 82747; 83036; 83540; 83721; 83735; 84425; 84443; 84466; 85014; 85025

== ENCOUNTER 2022-03-02 09:40 | Outpatient (CLI) | payer BC | END 2022-03-02 09:41 | disposition home or self-care (01) | LOC: RT 09:40 | PROVIDERS: ATTEND Surgery | DX: E66.01 Morbid (severe) obesity due to excess calories (principal); Z68.43 Body mass index [BMI] 50.0-59.9, adult | CPT/HCPCS: 36415; 80053; 80061; 82306; 82330; 82607; 82747; 83036; 83540; 83721; 83735; 84425; 84443; 84466; 85014; 85025; 93005 ==

== ENCOUNTER 2023-10-07 09:37 | Outpatient (CLI) | payer BC ==
[2023-10-07 10:01] LABS: HCT - HEMATOCRIT 32.6 % (37.0-47.0); MEAN CORPUSCULAR HEMOGLOBIN 25.2 pg (27.0-31.0); MEAN CORPUSCULAR HGB CONC 30.7 g/dL (32.0-36.0); MEAN CORPUSCULAR VOLUME 82.1 fL (81.0-99.0); MEAN PLATELET VOLUME 9.4 fL (7.9-10.8); RED BLOOD COUNT 3.97 10^6/uL (4.20-5.40); RED CELL DISTRIBUTION WIDTH 15.9 % (12.0-15.0)
[2023-10-07 10:19] LABS: % IRON SATURATION 7 % (20-50); ALBUMIN 3.6 g/dL (3.2-5.5); ALBUMIN/GLOBULIN RATIO 1.6 (1.0-2.2); ALKALINE PHOSPHATASE 42 IU/L (42-121); ALT ALANINE AMINOTRANSFERASE 19 IU/L (10-60); AST ASPARTATE AMINOTRANSFERASE 19 IU/L (10-42); BILIRUBIN,TOTAL 0.3 mg/dL (0.2-1.0); BUN - BLOOD UREA NITROGEN 13 mg/dL (6-20); CALCIUM 8.7 mg/dL (8.5-10.3); CARBON DIOXIDE - CO2 27 mmol/L (21-32); CHLORIDE 104 mmol/L (101-111); CHOL/HDL RATIO 2.2 (<4.4); CHOLESTEROL 146 mg/dL; CREATININE 0.6 mg/dL (0.6-1.3); GFR - MDRD 106 (>89); GLUCOSE 102 mg/dL (74-104); HDL CHOLESTEROL 66 mg/dL; IRON 25 ug/dL (50-212); LDL CHOLESTEROL,CALCULATED 68 mg/dL; POTASSIUM 4.1 mmol/L (3.5-4.5); SODIUM 135 mmol/L (135-145); TOTAL IRON BINDING CAPACITY 384 ug/dL (250-450); TOTAL PROTEIN 5.8 g/dL (6.4-8.9); TRANSFERRIN 274 mg/dL (203-362); TRIGLYCERIDES 60 mg/dL (48-352); VLDL CHOLESTEROL 12 mg/dL
[2023-10-07 10:32] LABS: THYROID STIMULATING HORMONE 0.77 uIU/mL (0.34-5.60)
[2023-10-07 10:40] LABS: FERRITIN 3.4 ng/mL (11.0-306.8)
[2023-10-07 11:06] LABS: ESTIMATED AVERAGE GLUCOSE 103 mg/dL (70-100); HEMOGLOBIN A1c% 5.2 % (4.27-6.07)
[2023-10-08 14:08] LABS: VITAMIN D 25-HYDROXY 49.1 ng/mL (30.0-100.0)
[2023-10-08 23:08] LABS: HCV AB Non Reactive (Non Reactive); HIV SCREEN 4TH GENERATION Non Reactive (Non Reactive)
== END 2023-10-07 09:38 | disposition home or self-care (01) ==
LOC: LAB 09:37
PROVIDERS: ATTEND Student in an Organized Health Care Education/Training Program
DX: Z11.59 Encounter for screening for other viral diseases (principal); Z11.4 Encounter for screening for human immunodeficiency virus [HIV]; Z98.84 Bariatric surgery status
CPT/HCPCS: 36415; 80053; 80061; 82306; 82525; 82607; 82728; 82746; 83036; 83540; 83721; 83970; 84425; 84443; 84466; 84590; 84630; 85027; 86803; 87389

== ENCOUNTER 2024-04-13 10:55 | Outpatient (CLI) | payer BC ==
[2024-04-13 11:14] LABS: BASOPHILS # (AUTO) 0.1 10^3/uL (0.0-0.1); BASOPHILS % (AUTO) 1.2 %; HCT - HEMATOCRIT 31.4 % (37.0-47.0); HGB - HEMOGLOBIN 9.9 g/dL (12.0-16.0); LYMPHOCYTES # (AUTO) 1.5 10^3/uL (1.5-3.5); LYMPHOCYTES % (AUTO) 36.5 %; MEAN CORPUSCULAR HEMOGLOBIN 24.3 pg (27.0-31.0); MEAN CORPUSCULAR HGB CONC 31.5 g/dL (32.0-36.0); MEAN CORPUSCULAR VOLUME 77.1 fL (81.0-99.0); MEAN PLATELET VOLUME 8.7 fL (7.9-10.8); MONOCYTES # (AUTO) 0.4 10^3/uL (0.0-1.0); MONOCYTES % (AUTO) 9.8 %; NEUTROPHILS # (AUTO) 2.2 10^3/uL (1.5-6.6); NEUTROPHILS % (AUTO) 51.3 %; PLT - PLATELET COUNT 278 10^3/uL (130-450); RED BLOOD COUNT 4.07 10^6/uL (4.20-5.40); RED CELL DISTRIBUTION WIDTH 15.9 % (12.0-15.0); WHITE BLOOD COUNT 4.2 x10^3/uL (4.8-10.8)
[2024-04-13 11:36] LABS: ALBUMIN 3.8 g/dL (3.2-5.5); ALBUMIN/GLOBULIN RATIO 1.6 (1.0-2.2); ALKALINE PHOSPHATASE 27 IU/L (42-121); ALT ALANINE AMINOTRANSFERASE 15 IU/L (10-60); AST ASPARTATE AMINOTRANSFERASE 17 IU/L (10-42); BILIRUBIN,TOTAL 0.4 mg/dL (0.2-1.0); BUN - BLOOD UREA NITROGEN 10 mg/dL (6-20); CALCIUM 8.4 mg/dL (8.5-10.3); CARBON DIOXIDE - CO2 27 mmol/L (21-32); CHLORIDE 99 mmol/L (101-111); CHOLESTEROL 186 mg/dL; CREATININE 0.7 mg/dL (0.6-1.3); CRP - C-REACTIVE PROTEIN < 0.5 mg/dL (<0.5); GFR - MDRD 89 (>89); GLUCOSE 94 mg/dL (74-104); HDL CHOLESTEROL 93 mg/dL; LDL CHOLESTEROL,CALCULATED 81 mg/dL; LDL/HDL RATIO 0.9 (<4.4); POTASSIUM 3.9 mmol/L (3.5-4.5); SODIUM 132 mmol/L (135-145); TOTAL PROTEIN 6.2 g/dL (6.4-8.9); TRIGLYCERIDES 61 mg/dL; VLDL CHOLESTEROL 12 mg/dL
[2024-04-13 11:46] LABS: THYROID STIMULATING HORMONE 0.78 uIU/mL (0.34-5.60)
[2024-04-13 12:15] LABS: RHEUMATOID FACTOR NEGATIVE (Negative)
== END 2024-04-13 10:56 | disposition home or self-care (01) ==
LOC: LAB 10:55
PROVIDERS: ATTEND Nurse Practitioner Family
DX: R03.0 Elevated blood-pressure reading, without diagnosis of hypertension (principal); Z13.29 Encounter for screening for other suspected endocrine disorder; M25.50 Pain in unspecified joint; Z98.84 Bariatric surgery status
CPT/HCPCS: 36415; 80053; 80061; 83721; 84443; 85025; 85651; 86038; 86140; 86430